=== PATIENT | male | born 1990 | race Caucasian/White ===

== ENCOUNTER 2021-02-09 20:05 | Emergency (ER) | payer OTHER ==
[~2021-02-09] VITALS: Ht 188 cm; Wt 99.8 kg
== END 2021-02-09 22:29 | disposition home or self-care (01) ==
LOC: ED 20:05
DX: U07.1 COVID-19 (principal)
CPT/HCPCS: 71045; 99284-25

== ENCOUNTER 2022-07-27 09:56 | Emergency (ER) | payer OTHER ==
[~2022-07-27] VITALS: Ht 188 cm; Wt 103.3 kg
== END 2022-07-27 15:17 | disposition home or self-care (01) ==
LOC: ED 09:56
DX: R50.9 Fever, unspecified (principal); Z20.822 Contact with and (suspected) exposure to COVID-19
CPT/HCPCS: 36415; 80053; 85025; 87502; 87880; 99283; C9803; U0003